=== PATIENT | female | born 1970 | race Caucasian/White ===

== ENCOUNTER → 2021-05-27 | Outpatient (CLI) | payer MEDICARE ==
[~2021-05-27] VITALS: Ht 167.6 cm; Wt 74.4 kg
[~2021-05-27] MED LIST: NAPROSYN EC 37375 MG PO; PREDNISONE50 MG PO
== END ==
LOC: OPSV 05-08 14:00
DX: M81.0 Age-related osteoporosis without current pathological fracture (principal)
CPT/HCPCS: 96372

== ENCOUNTER → 2021-11-22 | Outpatient (CLI) | payer MEDICARE | LOC: MAMO 08-21 10:00 | DX: Z12.31 Encounter for screening mammogram for malignant neoplasm of breast (principal) | CPT/HCPCS: 77063; 77067 ==

== ENCOUNTER → 2021-11-27 | Outpatient (CLI) | payer MEDICARE | LOC: EXRD 09:00 | DX: N20.0 Calculus of kidney (principal) | CPT/HCPCS: 76775 ==

== ENCOUNTER → 2021-12-30 | Outpatient (CLI) | payer MEDICARE ==
[~2021-12-30] VITALS: Ht 167.6 cm; Wt 74.4 kg
== END ==
LOC: OPSV 12-12 14:00
DX: M81.0 Age-related osteoporosis without current pathological fracture (principal)
CPT/HCPCS: 96372